=== PATIENT | male | born 1970 | race Caucasian/White ===

== ENCOUNTER 2016-05-24 18:06 | Emergency (ER) | payer SELFPAY ==
[~2016-05-24] VITALS: Ht 193 cm; Wt 113.4 kg
[2016-05-24 19:01] VITALS: BP 162/117
--- NOTE | 2016-05-24 21:50 | NUR ---
TO ER BED 7
--- NOTE | 2016-05-24 22:01 | NUR ---
45Y/M PATIENT PRESENTS TO ED WITH C/O THROAT PAIN X 1 DAY . PT STATES ATE FISH THEN FEELING LIKE BONE STUCK IN THE THROAT, C/O PAIN . DENIES N/V/D; SKIN IS PINK/WARM/DRY; AAOX4 WITH EVEN AND STEADY GAIT; LUNGS CLEAR BL; HR EVEN AND REGULAR; PT DENIES ANY FEVER, CP, SOB, OR COUGH AT THIS TIME; PATIENT STATES PAIN OF 8/10 AT THIS TIME; VSS; PATIENT POSITIONED FOR COMFORT; HOB ELEVATED; BEDRAILS UP X2; BED DOWN. ER MD MADE AWARE OF PT STATUS.
[2016-05-24] MEDS ORDERED: ENALAPRILAT 2.5 MG/2 ML VIAL IVP ONE (22:05)
--- NOTE | 2016-05-24 22:33 | NUR ---
TAKE PT. TO CT
--- NOTE | 2016-05-24 22:46 | NUR ---
PT. BACK FROM CT
[2016-05-25 01:07] VITALS: BP 153/88
--- NOTE | 2016-05-25 01:08 | NUR ---
Patient discharged with v/s stable. Written and verbal after care instructions given and explained. Patient alert, oriented and verbalized understanding of instructions. Ambulatory with steady gait. All questions addressed prior to discharge. ID band removed. Patient advised to follow up with PMD. Rx of PEPSID 40 MG, LISINOPRIL 20 MG, AUGMENTIN 875 MG given. Patient educated on indication of medication including possible reaction and side effects. Opportunity to ask questions provided and answered.
== END 2016-05-25 01:06 | disposition home or self-care (01) ==
LOC: MED 18:06
DX: S27.812A Contusion of esophagus (thoracic part), initial encounter (principal); I10 Essential (primary) hypertension; J32.0 Chronic maxillary sinusitis; F17.210 Nicotine dependence, cigarettes, uncomplicated; Z71.6 Tobacco abuse counseling; X58.XXXA Exposure to other specified factors, initial encounter; Y93.89 Activity, other specified; Y92.89 Other specified places as the place of occurrence of the external cause; Y99.8 Other external cause status
CPT/HCPCS: 70490; 96374; 99284; J3490

== ENCOUNTER 2018-10-06 21:12 | Emergency (ER) | payer SELFPAY ==
[~2018-10-06] VITALS: Ht 193 cm; Wt 113.4 kg
[~2018-10-06 21:12] MED LIST: AMOX500T3 PO; CLAR500T PO; OMEP20TC10 PO
[2018-10-06 21:16] VITALS: BP 143/89
--- NOTE | 2018-10-06 21:19 | NUR ---
TO LOBBY A/W BED AMBULATORY
--- NOTE | 2018-10-06 23:20 | NUR ---
PATIENT CALLED TO PUT ON BED , NO RESPONSE
--- NOTE | 2018-10-06 23:20 | NUR ---
PATIENT LEFT WITHOUT BEING SEEN BY DR. LOZANO. NO FURTHER CARE PROVIDED FOR PATIENT.
--- NOTE | 2018-10-06 23:25 | NUR ---
CALLED FOR THE SECOND TIME, NO RESPONSE
--- NOTE | 2018-10-06 23:30 | NUR ---
CALLED FOR THE THIRD TIME NO RESPONSE
--- NOTE | 2018-10-06 23:30 | NUR ---
PATIENT LEFT WITHOUT BEING SEEN BY DR. LOZANO. NO FURTHER CARE PROVIDED FOR PATIENT.
== END 2018-10-06 23:30 | disposition left against medical advice (07) ==
LOC: MED 21:12
DX: T17.228A Food in pharynx causing other injury, initial encounter (principal); X58.XXXA Exposure to other specified factors, initial encounter; Y93.89 Activity, other specified; Y92.89 Other specified places as the place of occurrence of the external cause; Y99.8 Other external cause status; Z53.21 Procedure and treatment not carried out due to patient leaving prior to being seen by health care provider

== ENCOUNTER 2020-11-04 22:07 | Emergency (ER) | payer SELFPAY ==
[~2020-11-04] VITALS: Ht 193 cm; Wt 113.4 kg
[~2020-11-04 22:07] MED LIST changes: -CLAR500T PO; +CLAR500T14 PO
[2020-11-04 22:10] VITALS: BP 134/90
--- NOTE | 2020-11-04 22:13 | NUR ---
TO LOBBY A /W BED AMBULATORY
[2020-11-04 22:59] LABS: BASOPHILS % (AUTO) 0.3 % (0.0-2.0); EOSINOPHILS # (AUTO) 0.2 K/uL (0-0.4); EOSINOPHILS % (AUTO) 2.2 % (0.0-4.0); HEMATOCRIT 46.7 % (36-52); HEMOGLOBIN 15.9 g/dL (12.0-18.0); LYMPHOCYTES # (AUTO) 1.7 K/uL (2.0-11.5); LYMPHOCYTES % (AUTO) 20.9 % (20.5-51.1); MEAN CORPUSCULAR HEMOGLOBIN 33 pg (27-31); MEAN CORPUSCULAR HGB CONC 34 g/dL (33-37); MEAN CORPUSCULAR VOLUME 95.5 fL (80-94); MONOCYTES # (AUTO) 0.6 K/uL (0.8-1.0); NEUTROPHILS # (AUTO) 5.5 K/uL (1.8-7.7); NEUTROPHILS % (AUTO) 69.6 % (42.2-75.2); PLATELET COUNT (AUTO) 179 K/uL (140-450); RED BLOOD CELL COUNT(AUTO) 4.89 MIL/uL (4.20-6.10); RED CELL DISTRIBUTION WIDTH 13.2 % (11.6-13.7); WHITE BLOOD COUNT (AUTO) 7.9 K/uL (4.8-10.8)
[2020-11-04 23:00] LABS: APPEARANCE,URINE CLEAR (CLEAR); BILIRUBIN,URINE NEGATIVE (NEGATIVE); BLOOD, URINE NEGATIVE (NEGATIVE); COLOR,URINE YELLOW (YELLOW); LEUKOCYTE ESTERASE ,URINE NEGATIVE (NEGATIVE); NITRITE, URINE NEGATIVE (NEGATIVE); UGLUCOSE NEGATIVE (NEGATIVE)
[2020-11-04] MEDS ORDERED: ONDANSETRON 4 MG/2 ML VIAL IVP ONE (23:50)
[2020-11-04] MEDS ORDERED: NACL 0.9% 1,000 ML IV SCH (23:50)
[2020-11-04] MEDS ORDERED: MORPHINE SULFATE 2 MG/ML SYR IVP ONE (23:50)
[2020-11-05] MEDS ORDERED: PANT40EC PO (00:40)
[2020-11-05 00:50] LABS: ANION GAP 9.5 (8-16); CARBON DIOXIDE 27.7 mmol/L (21-32); POTASSIUM 4.2 mmol/L (3.5-5.1)
[2020-11-05 00:53] LABS: TOTAL BILIRUBIN 0.3 mg/dL (0.0-1.0)
[2020-11-05 00:54] LABS: ALBUMIN 3.7 g/dL (3.4-5.0)
[2020-11-05] MEDS ORDERED: ONDANSETRON 4 MG/2 ML VIAL ONE (01:09)
[2020-11-05] MEDS ORDERED: MORPHINE SULFATE 2 MG/ML SYR ONE (01:10)
[2020-11-05] MEDS ORDERED: PANTOPRAZOLE 40 MG TABEC PO ONE ×2 (01:15)
[2020-11-05] MEDS ORDERED: MORPHINE SULFATE 2 MG/ML SYR IM ONE ×2 (01:15)
[2020-11-05] MEDS ORDERED: KETOROLAC 30 MG/ML VIAL IM ONE ×2 (01:15)
[2020-11-05] MEDS ORDERED: ONDANSETRON 4 MG ODT PO ONE ×2 (01:15)
--- NOTE | 2020-11-05 01:30 | NUR ---
d/c with VSS> d/c education given. opportunity to ask questions given and answered. rx of protonix given .
== END 2020-11-05 01:30 | disposition home or self-care (01) ==
LOC: MED 22:07
DX: R10.9 Unspecified abdominal pain (principal); J45.909 Unspecified asthma, uncomplicated; Z79.899 Other long term (current) drug therapy
CPT/HCPCS: 36415; 74176; 80053; 81003; 83690; 85025; 96372; 99284; J1885; J2270; Q0162; J2405

== ENCOUNTER 2022-08-15 03:18 | Emergency (ER) | payer OTHER ==
[~2022-08-15] VITALS: Ht 162.6 cm; Wt 113.4 kg
[~2022-08-15 03:18] MED LIST changes: +OMEP-303 PO; -OMEP20TC10 PO; +PANT40EC PO
[2022-08-15 03:23] VITALS: BP 140/99
--- NOTE | 2022-08-15 03:36 | NUR ---
testicular pain 12/12, sugar 431 at the triage. painful urination.
--- NOTE | 2022-08-15 03:36 | NUR ---
pt. walked to bed 02
--- NOTE | 2022-08-15 03:37 | NUR ---
Patient resting in bed, A/Ox4, chest rise and fall symmetrical, no s/s of distress, on monitor.
--- NOTE | 2022-08-15 03:40 | NUR ---
Pt to restroom to collect a urine sample.
--- NOTE | 2022-08-15 03:42 | NUR ---
Patient being evaluated by physician at bedside.
[2022-08-15 04:02] LABS: APPEARANCE,URINE CLEAR (CLEAR); BILIRUBIN,URINE NEGATIVE (NEGATIVE); BLOOD, URINE NEGATIVE (NEGATIVE); COLOR,URINE YELLOW (YELLOW); LEUKOCYTE ESTERASE ,URINE NEGATIVE (NEGATIVE); NITRITE, URINE NEGATIVE (NEGATIVE); UGLUCOSE 3+ (NEGATIVE)
[2022-08-15 04:08] LABS: BASOPHILS % (AUTO) 0.5 % (0.0-2.0); EOSINOPHILS # (AUTO) 0.2 K/uL (0-0.4); EOSINOPHILS % (AUTO) 2.7 % (0.0-4.0); HEMATOCRIT 46.8 % (36-52); HEMOGLOBIN 16.5 g/dL (12.0-18.0); LYMPHOCYTES # (AUTO) 1.8 K/uL (2.0-11.5); LYMPHOCYTES % (AUTO) 25.7 % (20.5-51.1); MEAN CORPUSCULAR HEMOGLOBIN 33 pg (27-31); MEAN CORPUSCULAR HGB CONC 35 g/dL (33-37); MONOCYTES # (AUTO) 0.7 K/uL (0.8-1.0); NEUTROPHILS # (AUTO) 4.3 K/uL (1.8-7.7); NEUTROPHILS % (AUTO) 61.1 % (42.2-75.2); PLATELET COUNT (AUTO) 167 K/uL (140-450); RED BLOOD CELL COUNT(AUTO) 4.98 MIL/uL (4.20-6.10); RED CELL DISTRIBUTION WIDTH 12.4 % (11.6-13.7)
[2022-08-15 04:32] LABS: ALBUMIN 3.4 g/dL (3.4-5.0); ANION GAP 19.5 (8-16); CARBON DIOXIDE 21.4 mmol/L (21-32); CREATININE 0.7 mg/dL (0.6-1.3); POTASSIUM 3.9 mmol/L (3.5-5.1); TOTAL BILIRUBIN 0.6 mg/dL (0.0-1.0)
[2022-08-15] MEDS ORDERED: NACL 0.9% 1,000 ML IV ONE (04:50)
[2022-08-15] MEDS ORDERED: KETOROLAC 15 MG/ML VIAL IVP ONE (04:50)
[2022-08-15] MEDS ORDERED: CIPR500T4 PO (05:22)
[2022-08-15] MEDS ORDERED: ACET-10509 PO (05:23)
[2022-08-15] MEDS ORDERED: IBUP-2213 PO (05:23)
[2022-08-15 05:44] VITALS: BP 137/85
== END 2022-08-15 05:44 | disposition home or self-care (01) ==
LOC: MED 03:18
DX: N41.9 Inflammatory disease of prostate, unspecified (principal); R10.2 Pelvic and perineal pain; E11.65 Type 2 diabetes mellitus with hyperglycemia; J45.909 Unspecified asthma, uncomplicated; Z79.4 Long term (current) use of insulin; Z79.899 Other long term (current) drug therapy
CPT/HCPCS: 36415; 80053; 81003; 85025; 87086; 87491; 96361; 96374; 99283; J1885; J7030

== ENCOUNTER 2022-10-24 11:42 | Emergency (ER) | payer OTHER ==
[~2022-10-24] VITALS: Ht 193 cm; Wt 115.2 kg
[~2022-10-24 11:42] MED LIST changes: +ACET-10509 PO; +CIPR500T4 PO; +IBUP-2213 PO
[2022-10-24 12:02] VITALS: BP 125/77; PULSE 75; RESP 20; TEMP 97.8; O2SAT 98
[2022-10-24 13:58] LABS: FLU A ANTIGEN negative (NEGATIVE); FLU B ANTIGEN NEGATIVE (NEGATIVE)
[2022-10-24] MEDS ORDERED: BENZ-300 PO (14:02)
[2022-10-24] MEDS ORDERED: PROM118S5 PO (14:02)
[2022-10-24] MEDS ORDERED: SUD30 PO (14:02)
[2022-10-24] MEDS ORDERED: ACET-10509 PO (14:02)
== END 2022-10-24 14:16 | disposition home or self-care (01) ==
LOC: MED 11:42
DX: U07.1 COVID-19 (principal); J45.909 Unspecified asthma, uncomplicated; I10 Essential (primary) hypertension; E11.9 Type 2 diabetes mellitus without complications; Z79.4 Long term (current) use of insulin; Z79.899 Other long term (current) drug therapy
CPT/HCPCS: 99283

== ENCOUNTER 2022-12-03 16:03 | Emergency (ER) | payer OTHER ==
[~2022-12-03] VITALS: Ht 193 cm; Wt 117.0 kg
[~2022-12-03 16:03] MED LIST changes: +BENZ-300 PO; +PROM118S5 PO; +SUD30 PO
[2022-12-03 16:22] VITALS: BP 134/81; PULSE 72; RESP 15; TEMP 97.8; O2SAT 96
[2022-12-03] MEDS ORDERED: KETOROLAC 30 MG/ML VIAL IM ONE (16:45)
[2022-12-03] MEDS ORDERED: AMOX-1230 PO (16:51)
[2022-12-03 17:47] VITALS: BP 134/81; PULSE 72; RESP 15; TEMP 97.8; O2SAT 96
== END 2022-12-03 17:47 | disposition home or self-care (01) ==
LOC: MED 16:03
DX: S41.102A Unspecified open wound of left upper arm, initial encounter (principal); S41.101A Unspecified open wound of right upper arm, initial encounter; J45.909 Unspecified asthma, uncomplicated; E11.9 Type 2 diabetes mellitus without complications; I10 Essential (primary) hypertension; Z79.899 Other long term (current) drug therapy; Z79.2 Long term (current) use of antibiotics; Z79.1 Long term (current) use of non-steroidal anti-inflammatories (NSAID); W55.01XA Bitten by cat, initial encounter; Y93.89 Activity, other specified; Y92.89 Other specified places as the place of occurrence of the external cause; Y99.8 Other external cause status
CPT/HCPCS: 73130; 90471; 90715; 96372; 99284; J1885

== ENCOUNTER 2023-01-27 19:32 | Emergency (ER) | payer OTHER ==
[~2023-01-27] VITALS: Ht 193 cm; Wt 117.9 kg
[~2023-01-27 19:32] MED LIST changes: +AMOX-1230 PO
[2023-01-27] MEDS ORDERED: predniSONE 20 MG TAB PO ONE (19:40)
[2023-01-27] MEDS ORDERED: ALBUTEROL SULFATE/IPRATROPIU 3 ML SOL IH ONE (19:40)
[2023-01-27 19:44] VITALS: BP 179/99; PULSE 82; RESP 35; TEMP 99; O2SAT 94
[2023-01-27 20:06] VITALS: PULSE 74; RESP 18; O2SAT 96
[2023-01-27 20:28] LABS: FLU A ANTIGEN negative (NEGATIVE); FLU B ANTIGEN negative (NEGATIVE)
[2023-01-27] MEDS ORDERED: PRED20TA5 PO (20:34)
[2023-01-27] MEDS ORDERED: ALBU0.0912 IH (20:34)
[2023-01-27] MEDS ORDERED: DEXT118S25 PO (20:34)
[2023-01-27] MEDS ORDERED: BENZ200C4 PO (20:34)
[2023-01-27 20:44] VITALS: BP 170/89; PULSE 81; RESP 18; TEMP 98.7; O2SAT 94
== END 2023-01-27 20:43 | disposition home or self-care (01) ==
LOC: MED 19:32
DX: J45.901 Unspecified asthma with (acute) exacerbation (principal); J06.9 Acute upper respiratory infection, unspecified; I10 Essential (primary) hypertension; Z20.822 Contact with and (suspected) exposure to COVID-19; E11.9 Type 2 diabetes mellitus without complications; F17.210 Nicotine dependence, cigarettes, uncomplicated; Z79.899 Other long term (current) drug therapy; Z79.2 Long term (current) use of antibiotics; Z79.1 Long term (current) use of non-steroidal anti-inflammatories (NSAID)
CPT/HCPCS: 87426; 87804; 94640; 99283; J7512

== ENCOUNTER 2023-07-17 07:23 | Emergency (ER) | payer OTHER ==
[~2023-07-17] VITALS: Ht 193 cm; Wt 127.0 kg
[~2023-07-17 07:23] MED LIST changes: +ALBU0.0912 IH; +BENZ200C4 PO; +DEXT118S25 PO; +PRED20TA5 PO
[2023-07-17 07:33] VITALS: BP 152/84; PULSE 57; RESP 16; TEMP 97.7; O2SAT 97
[2023-07-17 08:48] LABS: BASOPHILS % (AUTO) 0.4 % (0.0-2.0); EOSINOPHILS # (AUTO) 0.1 K/uL (0-0.4); EOSINOPHILS % (AUTO) 1.7 % (0.0-4.0); HEMATOCRIT 46.4 % (36-52); HEMOGLOBIN 16.2 g/dL (12.0-18.0); LYMPHOCYTES % (AUTO) 26.4 % (20.5-51.1); MEAN CORPUSCULAR HEMOGLOBIN 33 pg (27-31); MEAN CORPUSCULAR HGB CONC 35 g/dL (33-37); MONOCYTES # (AUTO) 0.7 K/uL (0.8-1.0); MONOCYTES % (AUTO) 9.3 % (1.7-9.3); NEUTROPHILS # (AUTO) 4.8 K/uL (1.8-7.7); NEUTROPHILS % (AUTO) 62.2 % (42.2-75.2); PLATELET COUNT (AUTO) 155 K/uL (140-450); RED BLOOD CELL COUNT(AUTO) 4.99 MIL/uL (4.20-6.10); RED CELL DISTRIBUTION WIDTH 12.9 % (11.6-13.7); WHITE BLOOD COUNT (AUTO) 7.7 K/uL (4.8-10.8)
[2023-07-17 09:21] LABS: ALBUMIN 3.3 g/dL (3.4-5.0); ANION GAP 12.9 (8-16); CALCIUM 8.9 mg/dL (8.5-10.1); CARBON DIOXIDE 25.9 mmol/L (21-32); POTASSIUM 3.8 mmol/L (3.5-5.1); TOTAL BILIRUBIN 0.6 mg/dL (0.0-1.0); TOTAL PROTEIN, SERUM 6.4 g/dL (6.4-8.2)
[2023-07-17 10:24] LABS: AMPHETAMINE, URINE NEGATIVE ng/ml (NEG <=1000); BARBITURATE, URINE NEGATIVE ng/ml (NEG <=200); BENZODIAZEPINE, URINE NEGATIVE ng/mL (NEG <=200); CANNABINOID, URINE NEGATIVE ng/mL (NEG <=50); COCAINE, URINE NEGATIVE ng/mL (NEG <=300); OPIATE, URINE NEGATIVE ng/mL (NEG <=2000); PHENCYCLIDINE SCREEN,URINE NEGATIVE ng/mL (NEG <=25)
[2023-07-17] MEDS ORDERED: METF-1243 PO (10:39)
[2023-07-17 11:11] VITALS: BP 160/97; PULSE 61; RESP 17; TEMP 97.3; O2SAT 98
== END 2023-07-17 11:15 | disposition home or self-care (01) ==
LOC: MED 07:23
DX: E11.65 Type 2 diabetes mellitus with hyperglycemia (principal); R42 Dizziness and giddiness; J45.909 Unspecified asthma, uncomplicated; I10 Essential (primary) hypertension; Z79.1 Long term (current) use of non-steroidal anti-inflammatories (NSAID); Z79.2 Long term (current) use of antibiotics; Z79.899 Other long term (current) drug therapy
CPT/HCPCS: 36415; 80053; 80305; 82948; 85025; 93005; 99284